=== PATIENT | female | born 1955 | race Asian ===

== ENCOUNTER 2024-11-26 10:12 | Emergency (ER) | payer MEDICARE, OTHER, SELFPAY ==
[2024-11-26 10:14] VITALS: BP 125/84
--- NOTE | 2024-11-26 11:00 | ED.MUSCINJ ---
HPI-Injury
General
Chief Complaint: Musculo-Skeletal Complaint
Source: patient
Exam Limitations: none
Time Seen by Provider: 11/26/24 10:50
Nursing documentation reviewed up to this point in time: agreed with
History of Present Illness-Injury
Initial Injury comments:
69-year-old female with history of HTN, NIDDM, HLD presents after a fall playing pickle ball injuring her left wrist 2 hours ago.
Past History
Past History
ED Past Medical History: HTN, Hypercholesterolemia and NIDDM
ED Past Surgical History: None
Social History
Tobacco: Non-smoker
Personal:
Living: with family
Review of Systems
Review of Systems
Allergies reviewed?: Yes
All Other Systems: ROS reviewed and negative except as documented in HPI and ROS
Musculoskeletal: Reports other (pain left wrist)
Phy Exam
Physical Exam
Physical Exam:
GENERAL: No acute distress. A&Ox3.
CONSTITUTIONAL: Afebrile.
RESPIRATORY: Regular respirations, nonlabored, lungs clear.
CARDIOVASCULAR: Regular rate and rhythm, no murmurs, no rubs.
MUSCULOSKELETAL: Left wrist with mild swelling mild deformity, limited ROM. Normal radial and ulnar pulses. Brisk capillary refill, hand is warm and pink. Moves with ease. Well perfused.
SKIN: Warm, dry, pink
PSYCH: Normal mood and affect. Well kept, interactive and appropriate
NEUROLOGIC: Awake, alert and oriented. No focal neurological deficits
Injury Course
Orders/Labs/Results
Orders:
Orders
11/26/24 10:16
Wrist, Left 3 Views CR [CR Wrist - Left Min 3 Views] Urgent
Comment:
Reason For Exam: injury
11/26/24 10:59
Oxycodone/Acetaminophen [Percocet 5/325] 1 tablet PO NOW STA
Forearm, Left 2 View [CR Forearm - Left 2 View] Urgent
Comment:
Reason For Exam: fr wrist, pain forearm also
11/26/24 13:39
Sling Left-Treatment ONCE
Procedures
Splinting/Sling Placement
left wrist:
Procedure completed by: I Day CONCEPT ARTIST
Pre-splint extermity exam: neurovascular intact
Type of splint: ward wrap and volar
Splint material: fiberglass
Type of sling: sling fitted
Normal distal neurovascular exam?: Yes
Additional information:
needs further treatment, surgery
MDM/Problems Addressed
MDM/Problems Addressed:
69-year-old female with history of HTN, NIDDM, HLD presents after a fall playing pickle ball injuring her left wrist 2 hours ago.
Xray left wrist: IMPRESSION: Comminuted and impacted fracture of the distal left radius.
Xray left forearm: wrist fx as noted
12:30 PM:
Consulted orthopedic Dr. Condon who recommends giving it 1 try at reduction but if it does not improve he would not worry too much as it would definitely need surgery.
1:30 PM:
Procedure:
Hematoma block applied with bupivacaine, 8 mL, attempt to reduce the fracture was too painful for patient so this examiner cleansed the area with alcohol, placed a Band-Aid on it and placed a volar splint. Distal neurovascular intact after splint
applied. Sling applied. Patient is to call Dr. Condon's office on Thursday for next available appointment to set up for surgery
Chronic conditions affecting care:
*Pulse Oximetry
SaO2: 97
Oxygen Mode of Delivery: Room air
Patient hypoxic: not evaluated
*Critical Care Note
Total Time (30-74mins, 75-104mins- exclusive of procedures): Not Applicable
ED Attending Note
-
Portions of this chart may have been created with voice recognition software.� Occasional wrong word or��sound alike� substitutions may have occurred due to the inherent limitations of voice recognition software.
Discharge Plan
Departure
Patient Disposition: Home (Routine Discharge)
Date of Disposition: 11/26/24
Time of Disposition: 13:39
Patient with high blood pressure during this ER visit?: No
Condition: Good
Discharge Problem:
Fracture of left wrist, Fall from slip, trip, or stumble
Instructions: Wrist Fracture (DC), How to Use a Shoulder Sling, Using Cold for Pain
Referrals:
Kashif Condon MD [Active, Orthopedics] - Call in 1-3 days for appt
Virginia Art MD [Family Provider]
Activity Restrictions/Additional Instructions:
As we discussed, take ibuprofen 400 mg along with acetaminophen which is Tylenol 500 mg every 6 hours as needed for pain.
Keep the splint on until you see the orthopedic doctor
Wear the sling when up and around call the orthopedic doctors office Thursday and make next available appointment.
I have contacted him and his office should be expecting your call
Interventions
Interventions:
*Risk Screen - Suicide Last Done: 11/26/24 10:14
*General Assessment Last Done: 11/26/24 11:09
*Neglect/Abuse Screening Last Done: 11/26/24 10:14
*ED- Fall Risk Assessment Last Done: 11/26/24 11:09
*Nursing Disposition Last Done: 11/26/24 13:56
ED-Musculoskeletal Assessment Last Done: 11/26/24 11:09
Discharge Date and Time
Discharge Date/Time: 11/26/24 13:57
Print Language: SRI LANKAN
[2024-11-26] MEDS: PERCOCET 5/325 1 TABLET PO (11:18)
== END 2024-11-26 13:57 | disposition home or self-care (01) ==
LOC: EMR 10:12
PROVIDERS: EMERGENCY PHYSICIAN Student in an Organized Health Care Education/Training Program; FAMILY PHYSICIAN Hospitalist
DX: S52.592A Other fractures of lower end of left radius, initial encounter for closed fracture (principal); S52.612A Displaced fracture of left ulna styloid process, initial encounter for closed fracture; W01.0XXA Fall on same level from slipping, tripping and stumbling without subsequent striking against object, initial encounter; Y93.89 Activity, other specified; E78.00 Pure hypercholesterolemia, unspecified; I10 Essential (primary) hypertension; E11.9 Type 2 diabetes mellitus without complications
CPT/HCPCS: 29125; 99283; 73090; 73110

== ENCOUNTER → 2024-11-28 10:39 | Outpatient (REF) | payer MEDICARE, OTHER, SELFPAY ==
[2024-11-28 11:46] LABS: Hematocrit 38.1 % (37.0-47.0); Hemoglobin 12.9 g/dL (12.0-16.0); Mean Corp Hgb Conc. 33.9 g/dL (33.0-37.0); Mean Corpuscular Volume 91.8 fL (81.0-99.0); Nucleated Red Blood Cells % 0 %; Platelet Count 235 10^3/uL (130-400); Red Cell Dist. Width 12.5 % (11.5-14.5)
[2024-11-28 12:12] LABS: Blood Urea Nitrogen 15 mg/dl (7-17); Calcium 10.0 mg/dl (8.4-10.2); Carbon Dioxide 28 mmol/L (22-30); Chloride 100 mmol/L (98-107); Glucose 80 mg/dl (70-99); Potassium 4.1 mmol/L (3.5-5.1); Sodium 135 mmol/L (135-145); eGFR > 60.00
== END ==
LOC: REG 10:39
PROVIDERS: ATTENDING PHYSICIAN Orthopaedic Surgery
DX: Z01.818 Encounter for other preprocedural examination (principal)
CPT/HCPCS: 36415; 80048; 85025; 93005